=== PATIENT | female | born 1985 | race Two or more races ===

== ENCOUNTER 2017-03-16 16:03 | Emergency (ER) | payer OTHER ==
[2017-03-16 16:45] VITALS: BP 110/69
--- NOTE | 2017-03-16 17:14 | UC ---
Salvador Turner Alok, scribed for Reynaldo Palencia MD on 03/16/17 at 1705 . Throat Pain/Nasal Pedro HPI - HPI Summary HPI Summary: 32F presents to [facility] with a sore throat and tongue swelling for the past 2 days , worsening yesterday and today. Pt states her pain is at a 5 out of 10 presently and was slightly worse yesterday. Pt denies fever, rhinorrhea, cough , or drooling. Pt denies changes in voice. Pt states that her currently has similar symptoms. Pt has NDKA. - History of Current Complaint Chief Complaint: UCGeneralIllness Stated Complaint: SORE THROAT Time Seen by Provider: 03/16/17 16:56 Hx Obtained From: Patient Hx Last Menstrual Period: 03/11/17 Onset/Duration: Lasting Days, Still Present Severity: Moderate Pain Intensity: 5 Pain Scale Used: 0-10 Numeric Cough: None Associated Signs & Symptoms: Positive: Other - ear ache, tongue swelling, sore throat - Allergies/Home Medications Allergies/Adverse Reactions: Allergies Allergy/AdvReac Type Severity Reaction Status Date / Time No Known Allergies Allergy Verified 03/16/17 16:37 Home Medications: Home Medications Loratadine 10 mg PO 03/16/17 [History Confirmed 03/16/17] PMH/Surg Hx/FS Hx/Imm Hx Previously Healthy: Yes Endocrine History Of: Denies: Diabetes Cardiovascular History Of: Denies: Hypertension - Surgical History Surgical History: None - Family History Known Family History: Negative: Cardiac Disease, Hypertension, Diabetes - Social History Occupation: Unemployed Lives: With Family Alcohol Use: None Substance Use Type: None Smoking Status (MU): Never Smoked Tobacco Have You Smoked in the Last Year: No - Immunization History Most Recent Influenza Vaccination: 2015 Review of Systems Constitutional: Negative Skin: Negative ENT: Sore Throat, Ear Ache Respiratory: Negative Gastrointestinal: Negative Neurovascular: Negative Neurological: Negative All Other Systems Reviewed And Are Negative: Yes Physical Exam Triage Information Reviewed: Yes Appearance: Well-Appearing Vital Signs: Initial Vital Signs Temp 98.3 F 03/16/17 16:40 Pulse 81 03/16/17 16:40 BP 110/69 03/16/17 16:40 Pulse Ox 100 03/16/17 16:40 Vital Signs Reviewed: Yes Eyes: Positive: Conjunctiva Clear ENT: Positive: Pharyngeal erythema, TM red - very slight redness anterior right TM, but no effusion, no bulging and normal cone of light reflex., Other: - Her tongue appears normal in size. No sublingual edema.. Negative: Nasal congestion , Nasal drainage, TM bulging, TM dull, Tonsillar swelling, Tonsillar exudate, Trismus, Muffled/hoarse voice Dental: Negative: Cervical Lymphadenopathy Neck: Positive: Supple, Nontender, No Lymphadenopathy Respiratory: Positive: Lungs clear, Normal breath sounds, No respiratory distress, No accessory muscle use Cardiovascular: Positive: RRR, No Murmur, Pulses Normal, Brisk Capillary Refill Abdomen Description: Positive: Nontender Musculoskeletal: Positive: Strength Intact, ROM Intact, No Edema Neurological: Positive: Alert Psychological: Positive: Normal Response To Family, Age Appropriate Behavior Skin: Negative: rashes Throat Pain/Nasal Course/Dx - Course Course Of Treatment: 32 yr old female with pharyngitis and negative rapid strep. She looks well otherwise. Tongue normal size. Will D/C home, and follow up with her PMD. - Differential Dx/Diagnosis Provider Diagnoses: pharyngitis Discharge - Discharge Plan Condition: Good Disposition: HOME Patient Education Materials: Pharyngitis (ED) Referrals: No Primary Care Phys,NOPCP [Primary Care Provider] - [facility] [Outside] The documentation as recorded by the Salvador blankenship Alok accurately reflects the service I personally performed and the decisions made by , Reynaldo Palencia MD.
== END 2017-03-16 17:22 | disposition home or self-care (01) ==
LOC: UCEAST 16:03
DX: J02.9 Acute pharyngitis, unspecified (principal)
CPT/HCPCS: 87651; 99211; G0463

== ENCOUNTER 2018-08-21 21:19 | Emergency (ER) | payer OTHER ==
[2018-08-21 21:54] VITALS: BP 131/76
[2018-08-21] MEDS ORDERED: Amoxicillin/Clavulanate TAB* 875 MG PO ONE (22:41)
--- NOTE | 2018-08-21 22:44 | UC ---
Throat Pain/Nasal Pedro HPI - HPI Summary HPI Summary: 3 weeks of worsening and continuing sinus pain now all upper teeth hurt and has a frontal sinus headache - History of Current Complaint Chief Complaint: UCRespiratory Stated Complaint: HEADACHE,DENTAL Time Seen by Provider: 08/21/18 22:36 Hx Obtained From: Patient Hx Last Menstrual Period: FIRST WEEK OF AUGUST ?: No Onset/Duration: Gradual Onset, Lasting Weeks, Still Present, Worse Since - past 10 days Pain Intensity: 6 Pain Scale Used: 0-10 Numeric Cough: None Associated Signs & Symptoms: Positive: Negative - Allergies/Home Medications Allergies/Adverse Reactions: Allergies Allergy/AdvReac Type Severity Reaction Status Date / Time No Known Allergies Allergy Verified 08/21/18 21:54 Home Medications: Home Medications Control* 1 tab PO DAILY 08/21/18 [History Confirmed 08/21/18] Cetirizine* [ZyrTEC 10 MG TAB*] 10 mg PO DAILY 08/21/18 [History Confirmed 08/21] Ibuprofen TAB* [Advil TAB*] 400 mg PO PRN 08/21/18 [History] Triamcinolone NASAL SPRAY* [Nasacort Aq Nasal [place]*] 1 spray .SEE ORDER [History] PMH/Surg Hx/FS Hx/Imm Hx Previously Healthy: Yes - Surgical History Surgical History: None - Family History Known Family History: Negative: Cardiac Disease, Hypertension, Diabetes - Social History Occupation: Works From/At Home Lives: With Family Alcohol Use: Occasionally Substance Use Type: None Smoking Status (MU): Never Smoked Tobacco Have You Smoked in the Last Year: No - Immunization History Most Recent Influenza Vaccination: 2016 Review of Systems Constitutional: Negative Skin: Negative Eyes: Negative ENT: Ear Ache, Nasal Discharge, Sinus Congestion, Sinus Pain/Tenderness Respiratory: Negative Cardiovascular: Negative Gastrointestinal: Negative Genitourinary: Negative Motor: Negative Neurovascular: Negative Musculoskeletal: Negative Neurological: Headache Psychological: Negative Is Patient Immunocompromised?: No All Other Systems Reviewed And Are Negative: Yes Physical Exam Triage Information Reviewed: Yes Appearance: Well-Nourished, Ill-Appearing - mild, Pain Distress - mild Vital Signs: Initial Vital Signs Temp 98 F 08/21/18 21:50 Pulse 95 08/21/18 21:50 Resp 16 08/21/18 21:50 BP 131/76 08/21/18 21:50 Pulse Ox 98 08/21/18 21:50 Vital Signs Reviewed: Yes Eye Exam: Normal Eyes: Positive: Conjunctiva Clear ENT Exam: Normal ENT: Positive: Normal ENT inspection, Hearing grossly normal, Pharynx normal, Nasal congestion, Nasal drainage, TMs normal, TM bulging - left tm, Sinus tenderness, Uvula midline. Negative: Trismus, Muffled voice, Hoarse voice, Dental tenderness Dental Exam: Normal Neck exam: Normal Neck: Positive: Supple, Nontender, No Lymphadenopathy Respiratory Exam: Normal Respiratory: Positive: Chest non-tender, Lungs clear, Normal breath sounds, No respiratory distress, No accessory muscle use Cardiovascular Exam: Normal Cardiovascular: Positive: RRR, No Murmur, Pulses Normal, Brisk Capillary Refill Musculoskeletal Exam: Normal Musculoskeletal: Positive: Strength Intact, ROM Intact, No Edema Neurological Exam: Normal Neurological: Positive: Alert, Muscle Tone Normal Psychological Exam: Normal Skin Exam: Normal Throat Pain/Nasal Course/Dx - Course Assessment/Plan: continued nosocort and otc sinus medication,,,, augmentin bid for 10 days follow with pcp prn - Differential Dx/Diagnosis Provider Diagnoses: acute rhinosinusitis Discharge - Sign-Out/Discharge Documenting (check all that apply): Patient Departure All imaging exams completed and their final reports reviewed: No Studies - Discharge Plan Condition: Stable Disposition: HOME Prescriptions: Amoxicillin/Clavulanate TAB* [Augmentin TAB 875*] 875 mg PO BID #19 tab Patient Education Materials: Rhinosinusitis (ED) Referrals: [facility] [Outside] - If Needed [facility] [Outside] - If Needed - Billing Disposition and Condition Condition: STABLE Disposition: Home
== END 2018-08-21 22:57 | disposition home or self-care (01) ==
LOC: UCEAST 21:19
DX: J00 Acute nasopharyngitis [common cold] (principal)
CPT/HCPCS: 99212; A9270-GY; G0463

== ENCOUNTER 2018-10-05 21:21 | Emergency (ER) | payer OTHER ==
[2018-10-05 21:29] VITALS: BP 117/81
[2018-10-05] MEDS ORDERED: Phenazopyridine TAB* 100 MG PO ONE (22:10)
[2018-10-05] MEDS ORDERED: Sulfamethox/Trimethoprim DS 800/160* TAB PO ONE (22:10)
--- NOTE | 2018-10-05 22:21 | UC ---
Complaint Female HPI - HPI Summary HPI Summary: Onset of dysuria, urinary frequency and urgency last night. No fever, nausea or back pain. Patient takes her control pill reliably and denies any chance of . - History Of Current Complaint Chief Complaint: UCGU Stated Complaint: burning urination Time Seen by Provider: 10/05/18 21:31 Hx Obtained From: Patient Hx Last Menstrual Period: 10 DAYS AGO Onset/Duration: Gradual Onset, Lasting Days - 1 DAY, Still Present Severity Initially: Moderate Severity Currently: Moderate Pain Intensity: 4 Pain Scale Used: 0-10 Numeric Character: Burning Aggravating Factor(s): Urination Alleviating Factor(s): Nothing Associated Signs And Symptoms: Negative: Fever, Back Pain, Nausea - Allergies/Home Medications Allergies/Adverse Reactions: Allergies Allergy/AdvReac Type Severity Reaction Status Date / Time No Known Allergies Allergy Verified 10/05/18 21:29 PMH/Surg Hx/FS Hx/Imm Hx Previously Healthy: Yes - Surgical History Surgical History: None - Family History Known Family History: Negative: Cardiac Disease, Hypertension, Diabetes - Social History Alcohol Use: Occasionally Substance Use Type: None Smoking Status (MU): Never Smoked Tobacco Have You Smoked in the Last Year: No - Immunization History Most Recent Influenza Vaccination: 2016 Review of Systems All Other Systems Reviewed And Are Negative: Yes Constitutional: Positive: Negative Respiratory: Positive: Negative Cardiovascular: Positive: Negative Gastrointestinal: Positive: Abdominal Pain Genitourinary: Positive: Dysuria, Frequency, Urgency Physical Exam Triage Information Reviewed: Yes Appearance: Well-Appearing, No Pain Distress, Well-Nourished Vital Signs: Initial Vital Signs Temp 97.1 F 10/05/18 21:25 Pulse 104 10/05/18 21:25 Resp 16 10/05/18 21:25 BP 117/81 10/05/18 21:25 Pulse Ox 100 10/05/18 21:25 Laboratory Tests 10/05/18 21:59 POC Urine Color Yellow POC Urine Clarity Clear POC Urine pH 6.5 POC Ur Specif [place] <= 1.005 L POC Urine Protein Negative POC Ur Glucose (UA) Negative POC Urine Ketones Negative POC Urine Blood 3+ A POC Urine Nitrite Negative POC Urine Bilirubin Negative POC Urine Urobilinogen 0.2 POC U Leukocyte Esteras 2+ A Vital Signs Reviewed: Yes Eyes: Positive: Conjunctiva Clear ENT: Positive: Hearing grossly normal Neck: Positive: Supple Respiratory: Positive: No respiratory distress, No accessory muscle use Cardiovascular: Positive: Pulses Normal Abdomen Description: Positive: Soft, Other: - MILD SUPRAPUBIC TENDERNESS. Negative: CVA Tenderness (R), CVA Tenderness (L), Distended, Guarding Musculoskeletal: Positive: No Edema Neurological: Positive: Alert Psychological: Positive: Age Appropriate Behavior Skin: Negative: Rashes Complaint Female Dx - Differential Dx/Diagnosis Provider Diagnosis: UTI (urinary tract infection) Discharge - Sign-Out/Discharge Documenting (check all that apply): Patient Departure All imaging exams completed and their final reports reviewed: No Studies - Discharge Plan Condition: Stable Disposition: HOME Prescriptions: Phenazopyridine TAB* [Pyridium TAB*] 200 mg PO TID #6 tab Sulfamethox/Trimethoprim DS* [Bactrim DS 800/160 TAB*] 1 tab PO BID #10 tab Patient Education Materials: Urinary Tract Infection in Women (ED) Referrals: Fredi Reid MD [Primary Care Provider] - If Needed Additional Instructions: Take Bactrim twice daily for the full course. Pyridium as needed for discomfort. Stay well hydrated. Your urine has been sent for culture and we will call you if your medication needs to be changed. - Billing Disposition and Condition Condition: STABLE Disposition: Home
== END 2018-10-05 22:24 | disposition home or self-care (01) ==
LOC: UCEAST 21:21
DX: N39.0 Urinary tract infection, site not specified (principal)
CPT/HCPCS: 81003; 87077; 87086; 87186; 99212; A9270-GY; G0463

== ENCOUNTER 2019-07-23 15:05 | Emergency (ER) | payer OTHER ==
--- OUTSIDE RECORDS SUMMARY | 2019-07-23 15:10 | XMS REPORT | Continuity of Care Document ---
:1985 External Reference #:[id number] Author Name WHITLEY Herman Address [address] [place] [address] Care Team Providers Name Role Phone Fredi Reid MD - Family Care Team Information Para Educator Medicine Problems Description No Information Available Social History Type Date Description Comments Sex Unknown Tobacco Use Start: Unknown Denies Tobacco Use ETOH Use Occasionally consumes none recently as alcohol attempting Tobacco Use Start: Unknown Nonsmoker Smoking Status Reviewed: 12/09/18 Nonsmoker Exercise used to run regularly less so now Type/Frequency Allergies, Adverse Reactions, Alerts Description No Known Drug Allergies Medications Active Medications SIG Qnty Indications Ordering Provider Date Allergy Relief 1 by mouth every Unknown Tablets day History Medications Physical Therapy please diagnose and M54.5 Bridgette Lombardi, 05/19/2019 - treat for lower TDP 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00 lb BMI (Body Mass Index) 27.9 kg/m2 Results Test Date Facility Test Result H/L Range Note Urine (Fma) 06/16/2019 [facility] SP Grav <=1.005 (607)- - Urine, (Fma/CMC/CTX) neg Chlamydia/GC 05/20/2019 [facility] Chlamydia Negative Negative 1, [address] trachomatis, [place] [address] (607)- - Neisseria gonorrhoeae, [place] Negative Negative 3 1 SRC:urine 1 urine aptima 2 Source of Specimen: urine 1 urine aptima 3 Source of Specimen: urine 1 urine aptima Procedures Date Code Description Status 06/16/2019 51622 Insertion of intrauterine device (IUD) Completed Medical Devices Description No Information Available Encounters Type Date Location Provider Dx Diagnosis Office Visit 05/19/2019 6:15p Main Office Bridgette Lombardi NP M54.5 Low back pain Z30.8 Encounter for other contraceptive management Assessments Date Code Description Provider 06/16/2019 Z30.430 Encounter for insertion of intrauterine WHITLEY Herman contraceptive device 06/16/2019 Z30.09 Encounter for other general counseling and WHTILEY Herman advice on contraception 05/19/2019 M54.5 Low back pain Bridgette Lombardi NP 05/19/2019 Z30.8 Encounter for other contraceptive Bridgette Lombardi NP management Plan of Treatment 06/16/2019 - WHITLEY HermanZ30.430 Encounter for insertion of intrauterine contraceptive uksnodA25.09 Encounter for other general counseling and advice on contraceptionAllComments:Medication Management Patient Understands medications he 's taking? Yes No Are there Barriers to Adherence? Yes No Has the patient been asked about herbal supplements and therapies, andOTC meds? Yes No As always, we strongly encourage a healthy diet and making physical activity a part of your every day life. If you have questions about how or where to start, please contact the office. Functional Status Description No Information Available Mental Status Description No Information Available Referrals Description No Information Available
--- OUTSIDE RECORDS SUMMARY | 2019-07-23 15:10 | XMS REPORT | Continuity of Care Document ---
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 06/16/2019 back pain Immunizations CPT Code Status Date Vaccine Lot # [id number] Given 05/16/2015 Meningococcal Conjugate Vaccine,Serogroups For [id number] Intramuscular Use 41693 Given 05/16/2015 Hep A Adlt Immunization D23LP [...] Date Facility Test Result H/L Range Note Chlamydia/GC 05/20/2019 [facility] Chlamydia Negative Negative 1, [address]omat[address], [place] [address] [place] (607)- - Neisseria gonorrhoeae, [place] Negative Negative 3 1 SRC:urine 1 urine aptima 2 Source of Specimen: urine 1 urine aptima 3 Source of Specimen: urine 1 urine aptima Procedures Date Code Description Status 06/16/2019 09736 Insertion of intrauterine device (IUD) Completed Medical Devices Description No Information Available Encounters Type Date Location Provider Dx Diagnosis Office Visit 05/19/2019 6:15p Main Office Bridgette Lombardi NP M54.5 Low back pain Z30.8 Encounter for other contraceptive management Assessments Date Code Description Provider 06/16/2019 Z30.430 Encounter for insertion of intrauterine Lori Lynn , USER EXPERIENCE ARCHITECT contraceptive device 06/16/2019 Z30.09 Encounter for other general counseling and Lori Lynn, USER EXPERIENCE ARCHITECT advice on contraception 05/19/2019 M54.5 Low back pain Bridgette Lombardi NP 05/19/2019 Z30.8 Encounter for other contraceptive Bridgette Lombardi NP management Plan of Treatment 06/16/2019 - Lori Lynn, FNPZ30.430 Encounter for insertion of intrauterine contraceptive vuvuwdR22.09 Encounter for other general counseling and advice [...]
[2019-07-23 15:21] VITALS: BP 126/80
--- NOTE | 2019-07-23 16:03 | UC ---
Rectal Pain HPI - HPI Summary HPI Summary: 34-year-old female who states she had 2 episodes of what she calls "rectal spasms" today. She is unable to really define what she felt. These lasted approximately 10-15 minutes. She does have chronic low back pain and she states over the past 24 hours she has had a little more low back pain than usual. She denies any urinary symptoms. She does have an IUD however her last period was "spotty". She denies any saddle anesthesia and no numbness or tingling in her extremities. When she felt the rectal spasms she had no feeling as though she had to have a bowel movement. She had a normal bowel movement already today. She denies any urinary symptoms and no recent illness or fever or chills. - History Of Current Complaint Chief Complaint: UCGU Stated Complaint: PERSONAL COMPLAINT Time Seen by Provider: 07/23/19 15:45 Hx Obtained From: Patient Hx Last Menstrual Period: IUD 6 wks ago ?: No Onset/Duration: Sudden Onset Timing: Intermittent Episodes Lasting: - Patient had 2 episodes, one this morning one this afternoon, of rectal spasms. She states sharp pain around the rectum, denies abdominal pain. Had no feeling as though she had to have a bowel movement. Severity Initially: Moderate Severity Currently: None Pain Intensity: 0 Location Of Pain: Rectal Character: Sharp Aggravating Factor(s): Nothing Alleviating Factor(s): Other - The pain resolved spontaneously after about 10 or 15 minutes. Associated Signs And Symptoms: Positive: Negative - Allergies/Home Medications Allergies/Adverse Reactions: Allergies Allergy/AdvReac Type Severity Reaction Status Date / Time No Known Allergies Allergy Verified 07/23/19 15:22 PMH/Surg Hx/FS Hx/Imm Hx Previously Healthy: Yes - Surgical History Surgical History: None - Family History Known Family History: Negative: Cardiac Disease, Hypertension, Diabetes - Social History Lives: With Family Alcohol Use: Occasionally Substance Use Type: None Smoking Status (MU): Never Smoked Tobacco Have You Smoked in the Last Year: No - Immunization History Most Recent Influenza Vaccination: 2015 Review of Systems All Other Systems Reviewed And Are Negative: Yes Gastrointestinal: Positive: Other - Rectal pain twice today as previously described. Is Patient Immunocompromised?: No Physical Exam Triage Information Reviewed: Yes Appearance: Well-Appearing, No Pain Distress, Well-Nourished Vital Signs: Initial Vital Signs Temp 97.3 F 09/21/19 15:19 Pulse 70 07/23/19 15:19 Resp 12 07/23/19 15:19 BP 126/80 07/23/19 15:19 Pulse Ox 100 07/23/19 15:19 Eye Exam: Normal ENT: Positive: Hearing grossly normal, Pharynx normal, TMs normal, Uvula midline Neck: Positive: Supple, Nontender, No Lymphadenopathy Respiratory: Positive: Lungs clear, Normal breath sounds, No respiratory distress, No accessory muscle use Cardiovascular: Positive: RRR, No Murmur, Pulses Normal, Brisk Capillary Refill Abdomen Description: Positive: Nontender, No Organomegaly, Soft, Other: - The rectal area was visualized and no abnormalities are noted. No hemorrhoids. Negative: CVA Tenderness (R), CVA Tenderness (L) Bowel Sounds: Positive: Present Musculoskeletal: Positive: Strength Intact, ROM Intact, Other: - Minimal tenderness on palpation the paraspinal muscles lower back, no bruising, erythema , deformity or swelling. Neurological Exam: Normal Psychological Exam: Normal Skin Exam: Normal Rectal Pain Course/Dx - Course Course Of Treatment: Urinalysis: Negative Urine test: Negative At this point time I am not completely sure what is causing the patient's 2 episodes of rectal pain today. There is no external hemorrhoids that I can see. She is going to monitor this and follow-up with her primary care provider. It's possible this could be related to her lower back pain. If she has any worsening symptoms, fever or chills, abdominal pain or worsening rectal pain she is to go to the emergency room for further treatment. - Differential Dx/Diagnosis Provider Diagnosis: Rectal pain Discharge ED - Sign-Out/Discharge Documenting (check all that apply): Patient Departure All imaging exams completed and their final reports reviewed: No Studies - Discharge Plan Condition: Good Disposition: HOME Patient Education Materials: Rectal Pain (ED) Referrals: Fredi Reid MD [Primary Care Provider] - Additional Instructions: Definite follow-up with your primary care provider as needed for any continued symptoms. If you develop fever, chills, worsening pain then you're to go to the emergency room for further evaluation. - Billing Disposition and Condition Condition: GOOD Disposition: Home
== END 2019-07-23 16:33 | disposition home or self-care (01) ==
LOC: UCEAST 15:05
DX: K62.89 Other specified diseases of anus and rectum (principal); G89.29 Other chronic pain; M54.5 Low back pain
CPT/HCPCS: 81003; 84702; 99211; G0463